=== PATIENT | male | born 1955 | race Caucasian/White ===

== ENCOUNTER → 2017-05-23 | Outpatient (CLI) | payer OTHER ==
[~2017-05-23] MED LIST: CEPHALEXIN250 M1 PO; CEPHALEXIN250 MG PO; DOXEPIN HCL25 MG PO; FLOMAX0.4 MG PO; LORTAB 7.5-500473 ML PO; LORTAB 7.5/51 TABLET; PRILOSEC20 MG PO; PROAIR HFA8.5 GM IH
== END | disposition home or self-care (01) ==
LOC: RES 07:34
DX: Z02.71 Encounter for disability determination (principal)
CPT/HCPCS: 94620